=== PATIENT | female | born 1980 | race Caucasian/White ===

== ENCOUNTER → 2019-07-26 | Day surgery (SDC) | payer MEDICARE, MEDICAID ==
[2019-07-20 14:49] VITALS: BP 132/77
[~2019-07-26] VITALS: Ht 152.4 cm; Wt 86.2 kg
[~2019-07-26] MED LIST: FLUVOXAMINE MA100 MG PO; HYDROXYZINE HCL25 MG PO; KEPPRA750 MG PO; NORETHIND-ETH1 EAC1 PO; SAPHRIS5 M1 SL; TOPAMAX100 M1 PO; VIMPAT200 MG PO
--- NOTE | ~2019-07-26 | O ---
[place], [place] OPERATIVE NOTE NAME: VERONICA MELCHOR UNIT #: [id number] ROOM: DOCTOR: KEVIN DUMAS DMD BIRTHDATE: [birth year] DOS: PREOPERATIVE DIAGNOSES: Caries and anxiety. POSTOPERATIVE DIAGNOSES: Caries and anxiety. ANESTHESIA: General anesthesia with endotracheal intubation. FLUIDS: Minimal. ESTIMATED BLOOD LOSS: Minimal. COMPLICATIONS: None. CONDITION: To PACU, stable. DESCRIPTION OF PROCEDURE: The patient was brought to the OR and placed in supine position. IV and EKG lines were placed. Endotracheal intubation and general anesthesia was administered. The patient was prepped and draped for oral procedures. Risks and benefits were explained to the patient and parents prior to surgery. Clinical exam and x-rays taken determined caries #2, 3, 14, 15, 20, 29, 30 and 31. PROCEDURES PERFORMED: #2 occlusal amalgam. #3 extraction with incision and drainage and culture and sensitivity due to facial swelling in the upper right midface. Tooth #14, DO amalgam, #15 MO amalgam. Tooth #20, DO amalgam, #29, DO amalgam, #30 MO amalgam, #31 occlusal amalgam. Sutured with 3-0 chromic, lavaged x 2. Throat pack removed. The patient left the OR in good condition and went to the PACU. KEVIN DUMAS DMD CM:OPRECORD:OPERATIVE NOTE 2 3 KEVIN DUMAS DMD [id number]/01/[id number] interface
[2019-07-26 07:00] VITALS: BP 129/71
[2019-07-26 09:52] VITALS: BP 144/82
[2019-07-26 10:07] VITALS: BP 124/67
[2019-07-26 10:22] VITALS: BP 125/74
[2019-07-26 10:52] VITALS: BP 117/66
== END | disposition home or self-care (01) ==
LOC: SDC 07-20 14:00
DX: K02.9 Dental caries, unspecified (principal); F43.0 Acute stress reaction; K21.9 Gastro-esophageal reflux disease without esophagitis; E66.9 Obesity, unspecified; Z68.37 Body mass index [BMI] 37.0-37.9, adult; Z98.51 Tubal ligation status; Z79.899 Other long term (current) drug therapy; Z98.890 Other specified postprocedural states